=== PATIENT | female | born 1960 | race Caucasian/White ===

== ENCOUNTER 2019-02-21 15:20 | Emergency (ER) | payer MEDICAID, OTHER ==
[~2019-02-21] VITALS: Ht 162.6 cm; Wt 63.0 kg
[2019-02-21 15:31] VITALS: BP 141/66
[2019-02-21] MEDS ORDERED: LIDOcaine 5% patch TP STA (17:11)
[2019-02-21] MEDS ORDERED: nicotine 14mg patch - 24hr TD STA (17:11)
[2019-02-21] MEDS ORDERED: IBUP-1984 PO (17:14)
[2019-02-21] MEDS ORDERED: ibuprofen tablet 400 MG TABLET PO ONE (17:15)
== END 2019-02-21 17:37 | disposition home or self-care (01) ==
LOC: ER 15:21
DX: M54.5 Low back pain (principal); G89.29 Other chronic pain; Z88.0 Allergy status to penicillin; Z88.8 Allergy status to other drugs, medicaments and biological substances; Z79.1 Long term (current) use of non-steroidal anti-inflammatories (NSAID)
CPT/HCPCS: 99284

== ENCOUNTER 2019-02-26 18:36 | Emergency (ER) | payer MEDICAID, OTHER ==
[~2019-02-26] VITALS: Ht 162.6 cm; Wt 48.7 kg
[~2019-02-26 18:36] MED LIST: IBUP-1984 PO
[2019-02-26 18:40] VITALS: BP 143/80
[2019-02-26] MEDS ORDERED: ibuprofen tablet 400 MG TABLET PO ONE (20:35)
[2019-02-26] MEDS ORDERED: diphenhydrAMINE 25mg capsule PO ONE (20:35)
[2019-02-26] MEDS ORDERED: triamcinolone acetonide 40mg/ml inj IM ONE (20:35)
== END 2019-02-26 20:58 | disposition home or self-care (01) ==
LOC: ER 18:36
DX: L25.9 Unspecified contact dermatitis, unspecified cause (principal); G89.29 Other chronic pain; G43.909 Migraine, unspecified, not intractable, without status migrainosus; F17.200 Nicotine dependence, unspecified, uncomplicated; Z88.0 Allergy status to penicillin; Z88.8 Allergy status to other drugs, medicaments and biological substances
CPT/HCPCS: 96372; 99283; J3301; Q0163

== ENCOUNTER 2019-03-03 14:41 | Emergency (ER) | payer MEDICAID ==
[~2019-03-03] VITALS: Ht 162.6 cm; Wt 63.6 kg
[2019-03-03 15:07] VITALS: BP 114/58
[2019-03-03] MEDS ORDERED: LIDOcaine 4% (40 mg/ml) topical solution 50ml TP ONE (15:50)
[2019-03-03] MEDS ORDERED: PRED10TA PO (16:01)
[2019-03-03 17:02] LABS: BASOPHILS % (AUTO) 0.5 % (0-1); EOSINOPHILS # (AUTO) 0.6 X10'3 (0-0.9); EOSINOPHILS % (AUTO) 7.6 % (0-6); HEMATOCRIT 35.9 % (35.0-45.0); LYMPHOCYTES # (AUTO) 1.4 X10'3 (1.1-4.8); LYMPHOCYTES % (AUTO) 18.7 % (21-51); MEAN CORPUSCULAR HGB CONC 33.5 g/dL (33.0-36.5); MEAN CORPUSCULAR VOLUME 98.7 FL (78-98); MEAN PLATELET VOLUME 8.2 FL (7.4-10.4); MONOCYTES # (AUTO) 0.5 X10'3 (0-0.9); MONOCYTES % (AUTO) 6.4 % (2-12); NEUTROPHILS # (AUTO) 5.1 X10'3 (1.8-7.7); NEUTROPHILS % (AUTO) 66.8 % (42-75); PLATELET COUNT 237 X10'3 (140-440); RED BLOOD COUNT 3.64 X10'6 (4.20-5.60); RED CELL DISTRIBUTION WIDTH 13.6 % (11.5-14.5); WHITE BLOOD COUNT 7.6 X10'3 (4.5-11.0)
--- NOTE | 2019-03-03 17:15 | NUR ---
PATIENT NOW ADAMANTLY DENIES ANY SUICIDAL IDEATION. "I JUST WANT HELP SURVIVING ON THE STREETS." DISCUSSED CASE WITH DR IBRAHIM WHO SPOKE TO PATIENT AND LIFTED [id number]. PATIENT PROVIDED LITERATURE FOR [facility], JAIL, CLOTHING AND FOOD SERVICES IN THE AREA. PATIENT ALSO VERBALIZED AND GIVEN THE BROCHURE FOR [facility]. PER THE PATIENT SHE IS CURRENTLY A RESIDENT AT [facility]. PATIENT PROVIDED EXTRA LARGE [employer]ANDA[employer] FOR EXTRA DRESSINGS. I GAVE THE PATIENT A BUS PASS TO RETURN TO [facility]. DURING OUR CONVERSATION, PATIENT WAS SCREAMING INTERMITTENTLY ABOUT GETTING "[facility] [employer]". PATIENT WAS HANDED A BAG LUNCH.
[2019-03-03 17:16] LABS: ALANINE AMINOTRANSFERASE 58 U/L (12-78); ALBUMIN 3.8 G/DL (3.4-5.0); ALBUMIN/GLOBULIN RATIO 1.2 (1.1-1.5); ALKALINE PHOSPHATASE 66 IU/L (46-116); ANION GAP 7 (8-16); ASPARTATE AMINO TRANSFERASE 37 U/L (10-37); BILIRUBIN,TOTAL 0.3 MG/DL (0.1-1.0); BLOOD UREA NITROGEN 20 MG/DL (7-18); BUN/CREATININE RATIO 27.8 (6.6-38.0); CALCIUM 9.4 MG/DL (8.5-10.1); CHLORIDE 108 MMOL/L (99-107); CREATININE 0.72 MG/DL (0.40-0.90); ETHANOL < 0.010 GM/DL (0.0-0.010); GLUCOSE 89 MG/DL (70-104); POTASSIUM 3.5 MMOL/L (3.5-5.1); SODIUM 141 MMOL/L (135-145); TOTAL CARBON DIOXIDE 26.3 MMOL/L (24-32); TOTAL PROTEIN 7.1 G/DL (6.4-8.2); eGFR 83 ML/MIN
--- NOTE | 2019-03-03 17:20 | NUR ---
Pt stating she is not suicidal but is wanting "crisis help". Pt reports she is living on the streets and frustrated with situation. Pt was re-evaluated by MD Hopper and pt to be discharged with original DC plan with script for prednisone for rash. Pt receivd script, bandages for sores of billat ankles and reference sheet for [facility]. Pt provided with bus pass and lunch sack as well.
== END 2019-03-03 18:48 | disposition home or self-care (01) ==
LOC: ER 14:42
DX: S70.12XA Contusion of left thigh, initial encounter (principal); S70.11XA Contusion of right thigh, initial encounter; S81.802A Unspecified open wound, left lower leg, initial encounter; S81.801A Unspecified open wound, right lower leg, initial encounter; L25.5 Unspecified contact dermatitis due to plants, except food; G89.29 Other chronic pain; G43.909 Migraine, unspecified, not intractable, without status migrainosus; F17.200 Nicotine dependence, unspecified, uncomplicated; F12.90 Cannabis use, unspecified, uncomplicated; Z79.899 Other long term (current) drug therapy; V00.131A Fall from skateboard, initial encounter; Y93.51 Activity, roller skating (inline) and skateboarding; Y92.89 Other specified places as the place of occurrence of the external cause; Y99.8 Other external cause status
CPT/HCPCS: 36415; 73564; 80053; 80320; 85025; 99284

== ENCOUNTER 2019-08-21 08:36 | Emergency (ER) | payer MEDICAID ==
[~2019-08-21] VITALS: Ht 162.6 cm; Wt 61.4 kg
[~2019-08-21 08:36] MED LIST changes: -IBUP-1984 PO; +PRED10TA PO
--- NOTE | 2019-08-21 09:03 | NUR ---
Miquel THURMAN at bedside.
[2019-08-21 09:06] LABS: URINE HCG NEGATIVE (NEG)
[2019-08-21 09:11] LABS: CLARITY,URINE CLOUDY (Clear); COLOR,URINE YELLOW (Yellow); GLUCOSE, URINE NEGATIVE (Neg); KETONES,URINE NEGATIVE (Neg); LEUKOCYTE ESTERASE ,URINE LARGE (Neg); NITRITES, URINE NEGATIVE (Neg); OCCULT BLOOD,URINE LARGE (Neg); PROTEIN,URINE 30 mg/dl (Neg); UROBILINOGEN,URINE 0.2 E.U/dL (0.2-1.0)
[2019-08-21 09:12] LABS: UA COLLECTION TYPE CLN CATCH MIDSTREAM
[2019-08-21] MEDS ORDERED: azithromycin 250mg tablet PO ONE (09:15)
[2019-08-21] MEDS ORDERED: CefTRIAXone 250MG IM Kit w/LIDOcaine IM ONE (09:15)
[2019-08-21 09:19] LABS: WBC,URINE TNTC /HPF (0-4)
[2019-08-21 09:21] LABS: SQUAMOUS EPITHELIAL CELL,UR FEW /LPF (FEW)
[2019-08-21 09:22] LABS: BACTERIA,URINE 2+ /HPF (Neg)
[2019-08-21 09:25] LABS: WBC CLUMPS,URINE MANY /HPF (NEGATIVE)
[2019-08-21 09:28] LABS: BASOPHILS % (AUTO) 0.5 % (0-1); EOSINOPHILS # (AUTO) 0.1 X10'3 (0-0.9); EOSINOPHILS % (AUTO) 0.8 % (0-6); HEMATOCRIT 36.3 % (35.0-45.0); HEMOGLOBIN 12.6 g/dl (12.0-16.0); LYMPHOCYTES # (AUTO) 1.6 X10'3 (1.1-4.8); MEAN CORPUSCULAR HEMOGLOBIN 33.9 PG (27.0-31.0); MEAN CORPUSCULAR HGB CONC 34.7 g/dL (33.0-36.5); MEAN CORPUSCULAR VOLUME 97.8 FL (78-98); MONOCYTES # (AUTO) 0.5 X10'3 (0-0.9); MONOCYTES % (AUTO) 7.1 % (2-12); NEUTROPHILS # (AUTO) 5.3 X10'3 (1.8-7.7); NEUTROPHILS % (AUTO) 70.6 % (42-75); PLATELET COUNT 227 X10'3 (140-440); RED BLOOD COUNT 3.72 X10'6 (4.20-5.60); RED CELL DISTRIBUTION WIDTH 13.3 % (11.5-14.5); WHITE BLOOD COUNT 7.5 X10'3 (4.5-11.0)
--- NOTE | 2019-08-21 09:37 | NUR ---
community resources/copy given to patient as requested.
[2019-08-21 09:38] LABS: ALANINE AMINOTRANSFERASE 24 U/L (12-78); ALBUMIN 3.8 G/DL (3.4-5.0); ALBUMIN/GLOBULIN RATIO 1.1 (1.1-1.5); ALKALINE PHOSPHATASE 62 IU/L (46-116); ANION GAP 10 (8-16); ASPARTATE AMINO TRANSFERASE 17 U/L (10-37); BILIRUBIN,TOTAL 0.1 MG/DL (0.1-1.0); BLOOD UREA NITROGEN 27 MG/DL (7-18); BUN/CREATININE RATIO 36.5 (6.6-38.0); CALCIUM 8.8 MG/DL (8.5-10.1); CHLORIDE 106 MMOL/L (99-107); CREATININE 0.74 MG/DL (0.40-0.90); GLUCOSE 75 MG/DL (70-104); POTASSIUM 3.7 MMOL/L (3.5-5.1); SODIUM 142 MMOL/L (135-145); TOTAL PROTEIN 7.3 G/DL (6.4-8.2); eGFR 81 ML/MIN
[2019-08-21] MEDS ORDERED: ketorolac tromethamine 15mg/ml inj. IM ONE (10:05)
[2019-08-21] MEDS ORDERED: NITR100C6 PO (10:25)
[2019-08-21 10:30] VITALS: BP 112/54
== END 2019-08-21 10:32 | disposition home or self-care (01) ==
LOC: ER 08:36
DX: N39.0 Urinary tract infection, site not specified (principal); G89.29 Other chronic pain; F12.90 Cannabis use, unspecified, uncomplicated; Z88.0 Allergy status to penicillin; Z79.899 Other long term (current) drug therapy
CPT/HCPCS: 36415; 80053; 81001; 81025; 85025; 87077; 87088; 87186; 87491; 87591; 96372; 99283; J0696; J1885

== ENCOUNTER 2019-09-25 08:24 | Emergency (ER) | payer MEDICAID ==
[~2019-09-25] VITALS: Ht 162.6 cm; Wt 63.6 kg
[~2019-09-25 08:24] MED LIST changes: +NITR100C6 PO
--- NOTE | 2019-09-25 08:57 | NUR ---
assisted pt to bs commode where urine obtain; dark felipa, cloudy, strong smellimg
[2019-09-25 09:18] LABS: CLARITY,URINE CLOUDY (Clear); COLOR,URINE YELLOW (Yellow); GLUCOSE, URINE NEGATIVE (Neg); KETONES,URINE TRACE mg/dl (Neg); LEUKOCYTE ESTERASE ,URINE MODERATE (Neg); NITRITES, URINE NEGATIVE (Neg); OCCULT BLOOD,URINE MODERATE (Neg); PROTEIN,URINE NEGATIVE (Neg); UA COLLECTION TYPE VOIDED
[2019-09-25 09:24] LABS: BACTERIA,URINE 4+ /HPF (Neg); CAL OXALATE CRYSTALS FEW /HPF (NEGATIVE); MUCUS STRANDS NONE SEEN /LPF (Neg); SQUAMOUS EPITHELIAL CELL,UR MODERATE /LPF (FEW); WBC,URINE TNTC /HPF (0-4)
[2019-09-25 09:26] LABS: RENAL CELLS, URINE FEW /HPF; WBC CLUMPS,URINE MODERATE /HPF (NEGATIVE)
[2019-09-25] MEDS ORDERED: METH-360 PO (09:58)
[2019-09-25] MEDS ORDERED: PRED20TA PO (09:58)
[2019-09-25] MEDS ORDERED: CEPH-572 PO (09:58)
[2019-09-25] MEDS ORDERED: cephalexin 250mg capsule PO ONE (10:20)
[2019-09-25 10:24] VITALS: BP 125/58
== END 2019-09-25 10:35 | disposition home or self-care (01) ==
LOC: ER 08:24
DX: S39.012A Strain of muscle, fascia and tendon of lower back, initial encounter (principal); G89.29 Other chronic pain; M54.42 Lumbago with sciatica, left side; N39.0 Urinary tract infection, site not specified; G43.909 Migraine, unspecified, not intractable, without status migrainosus; F12.90 Cannabis use, unspecified, uncomplicated; Z98.890 Other specified postprocedural states; Z88.0 Allergy status to penicillin; Z79.899 Other long term (current) drug therapy; X50.1XXA Overexertion from prolonged static or awkward postures, initial encounter; Y93.89 Activity, other specified; Y92.89 Other specified places as the place of occurrence of the external cause; Y99.9 Unspecified external cause status
CPT/HCPCS: 81001; 87077; 87088; 87186; 99283